=== PATIENT | female | born 2000 | race Caucasian/White ===

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

== ENCOUNTER 2019-04-17 07:51 | Emergency (ER) | payer OTHER, BC, MEDICAID ==
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
[2019-04-17] MEDS ORDERED: Zofran 4 MG/2 ML VIAL IV ONE (08:19)
[2019-04-17] MEDS ORDERED: Sodium Chloride 0.9% 1000 ML 1,000 ML IV STA (08:19)
[2019-04-17] MEDS ORDERED: Zofran 4 MG/2 ML VIAL ONE (08:23)
[2019-04-17] MEDS ORDERED: Sodium Chloride 0.9% 1000 ML 1,000 ML ONE (08:23)
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
[2019-04-17 09:41] VITALS: BP 144/81; O2SAT 99
[2019-04-17] MEDS ORDERED: Hydromorphone 1 mg/ml Ampule IV ONE (09:48)
[2019-04-17] MEDS ORDERED: Hydromorphone 1 mg/ml Ampule ONE (09:55)
[2019-04-17 10:04] VITALS: PULSE 103
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
== END 2019-04-17 10:34 | disposition home or self-care (01) ==
LOC: ED 07:51
DX: T14.8XXA Other injury of unspecified body region, initial encounter (principal); V48.5XXA Car driver injured in noncollision transport accident in traffic accident, initial encounter; R51 Headache; R07.81 Pleurodynia; M25.562 Pain in left knee; M79.652 Pain in left thigh; M79.662 Pain in left lower leg; R42 Dizziness and giddiness; R11.10 Vomiting, unspecified
CPT/HCPCS: 70450; 71046; 72125; 73552; 73562; 96360; 96374; 96375; 99284; J1170; J2405

== ENCOUNTER 2021-08-16 14:54 | Emergency (ER) | payer BC, MEDICAID ==
[2021-08-16] MEDS ORDERED: BENADRYL 50 MG/ML IM ONE (15:03)
[2021-08-16] MEDS ORDERED: BENADRYL 50 MG/ML ONE (15:03)
[2021-08-16] MEDS ORDERED: Pepcid 20 MG PO ONE (15:20)
--- NOTE | 2021-08-16 15:20 | ERPHSYRPT ---
- History of Present Illness Time Seen by Provider: 08/16/21 15:18 Source: patient Exam Limitations: no limitations Patient Subjective Stated Complaint: pt here for allergric reaction to shrimp. and now co hives Triage Nursing Assessment: pt alert, resp easy, skin w/d/p, has hives to face and trunk, no sob or difficulty swallowing Physician History: Patient is 20-year-old female without any significant past medical history, approximately 15 minutes before she came to the emergency room she had sleep and then suddenly developed hives on her face and trunk. She denies any shortness of breath or difficulty in swallowing. She did not have this type of reaction before. Timing/Duration: today Severity: mild Associated Symptoms: denies symptoms Allergies/Adverse Reactions: latex Allergy (Intermediate, Verified 08/16/21 15:02) Rash shellfish derived Allergy (Intermediate, Verified 08/16/21 15:02) Swelling of Tongue and Lips Home Medications: Diclofenac Sodium 75 mg PO DAILY 08/22/18 [History] Polyethylene Glycol 3350 17 gm [Miralax Powder 17GM PACKET] 17 gm PO DAILY 08/22/18 [History] Venlafaxine HCl ER 75 mg [Effexor XR 75 MG] 75 mg PO DAILY 08/22/18 [History] Hx Tetanus, Diphtheria Vaccination/Date Given: No Hx Influenza Vaccination/Date Given: Yes Hx Pneumococcal Vaccination/Date Given: No Immunizations Up to Date: Yes Travel Risk - International Travel Have you traveled outside of the country in past 3 weeks: No - Coronavirus Screening Are you exhibiting any of the following symptoms?: No Close contact with a COVID-19 positive Pt in past 14-21 Days: No - Vaccine Status Have you recieved a Covid-19 vaccination: No - Review of Systems Constitutional: No Fever, No Chills Eyes: No Symptoms Ears, Nose, & Throat: No Symptoms Respiratory: No Cough, No Dyspnea Cardiac: No Chest Pain, No Edema, No Syncope Abdominal/Gastrointestinal: No Abdominal Pain, No Nausea, No Vomiting, No Diarrhea Genitourinary Symptoms: No Dysuria Musculoskeletal: No Back Pain, No Neck Pain Skin: Rash, Skin Lesions Neurological: No Dizziness, No Focal Weakness, No Sensory Changes Psychological: No Symptoms Endocrine: No Symptoms All Other Systems: Reviewed and Negative - Past Medical History Pertinent Past Medical History: No Neurological History: Other Cardiac History: No Pertinent History Respiratory History: No Pertinent History Endocrine Medical History: Other Musculoskeletal History: No Pertinent History GI Medical History: No Pertinent History History: No Pertinent History Psycho-Social History: No Pertinent History Female Reproductive Disorders: No Pertinent History Other Medical History: rheumatoid arthritis, psoriasis,lupus - Past Surgical History Past Surgical History: Yes Neuro Surgical History: No Pertinent History Cardiac: No Pertinent History Respiratory: No Pertinent History Gastrointestinal: Other Genitourinary: No Pertinent History Musculoskeletal: Orthopedic Surgery Female Surgical History: No Pertinent History Other Surgical History: FOOT SURGERY,gastric bypass - Social History Smoking Status: Never smoker Exposure to second hand smoke: No Drug Use: none Patient Lives Alone: No - Female History Hx Last Menstrual Period: 2 weeks ago Hx Now: No - Nursing Vital Signs Nursing Vital Signs: Initial Vital Signs Temperature 97.9 F 08/16/21 14:58 Pulse Rate 96 H 08/16/21 14:58 Respiratory Rate 18 08/16/21 14:58 Blood Pressure 149/85 08/16/21 14:58 O2 Sat by Pulse Oximetry 99 08/16/21 14:58 Pain Scale Pain Intensity 0 - Physical Exam General Appearance: no apparent distress, alert Eye Exam: PERRL/EOMI, eyes nml inspection Ears, Nose, Throat Exam: normal ENT inspection, TMs normal, pharynx normal, moist mucous membranes Neck Exam: normal inspection, non-tender, supple, full range of motion Respiratory Exam: normal breath sounds, lungs clear, No respiratory distress Cardiovascular Exam: regular rate/rhythm, normal heart sounds, normal peripheral pulses Gastrointestinal/Abdomen Exam: soft, normal bowel sounds, No tenderness, No mass Back Exam: normal inspection, normal range of motion, No CVA tenderness, No vertebral tenderness Extremity Exam: normal inspection, normal range of motion, pelvis stable Neurologic Exam: alert, oriented x 3, cooperative, normal mood/affect, nml cerebellar function, nml station & gait, sensation nml, No motor deficits Skin Exam: normal color, warm, dry, rash Lymphatic Exam: No adenopathy SpO2: 99 - Course Nursing assessment & vital signs reviewed: Yes Ordered Tests: Medication Summary Discontinued Medications Generic Name Dose Route Start Last Admin Trade Name Freq PRN Reason Stop Dose Admin Diphenhydramine HCl 50 mg 08/16/21 15:03 08/16/21 15:06 Diphenhydramine Hcl 50 Mg/Ml Vial IM 02/13/22 15:04 50 mg STAT ONE Administration Diphenhydramine HCl Confirm 08/16/21 15:03 Diphenhydramine Hcl 50 Mg/Ml Vial Administered 08/16/21 15:04 Dose 50 mg .ROUTE .STK-MED ONE Famotidine 40 mg 08/16/21 15:20 Famotidine 20 Mg Tablet PO 08/16/21 15:21 STAT ONE - Progress Progress: improved Counseled pt/family regarding: diagnosis, need for follow-up - Departure Departure Disposition: Home Clinical Impression: Food allergic skin reaction Condition: Stable Critical Care Time: No Referrals: TEODORA MANN [Primary Care Provider] - Follow up/PCP as directed Instructions: Food Allergy Additional Instructions: Discharge/Care Plan BEV NG was seen on 08/16/21 in the Emergency Room. The patient was counseled regarding Diagnosis,Lab results, Imaging studies, need for follow up and when to return to the Emergency Room. Prescriptions given: Discharge Note I have spoken with the patient and/or caregivers. I have explained the patient's condition, diagnosis and treatment plan based on the information available to me at this time. I have answered the patient's and/or caregiver's questions and addressed any concerns. The patient and/or caregivers have as good understanding of the patient's diagnosis, condition and treatment plan as can be expected at this point. The vital signs have been stable. The patient's condition is stable and appropriate for discharge from the emergency department. The patient will pursue further outpatient evaluation with the primary care physician or other designated or consulting physician as outlined in the discharge instructions. The patient and/or caregivers are agreeable to this plan of care and follow-up instructions have been explained in detail. The patient and/or caregivers have received these instruction. The patient/and or caregivers are aware that any significant change in condition or worsening of symptoms should prompt an immediate return to this or the closest emergency department or call 911. BEV NG was seen on 08/16/21 n the Emergency Room. At that time you were treated for an emergent condition, during your visit Laboratory, Radiology and/or other procedures may have been ordered. It is very important that you follow-up with your Primary Care Physician TEODORA MANN within the next 24-48 hours to review your Emergency Room visit and the final results of testing that was ordered. Some test results such as Urine Cultures, Blood Cultures, and other cultures if ordered will not be finalized for 24-48 hours. If you do not have a Primary Care Provider please call the medical records department at [phone] to obtain a copy of your results or you may sign into our patient portal to obtain these results by visiting us @ [email or web address] and completing the following steps: 1. Click on the Patient Portal link 2. Click the Patient Self Enrollment Link to complete the enrollment form and entering your 3. Once the enrollment form is completed you will receive an email with a temporary ID and password at the email address you provided. 4. Next choose a user name and password. Your user name must be at least 4 characters long and your password must be at least 4 characters long. 5. Choose a security question from the list and provide your answer to the question. If you already have signed into the Health Portal you may access your Health Care Information 24/01 by the following steps: 1. Login to our website @ [email or web address] 2. Enter your original user name and password. FAQS The [facility] Health Portal is an online tool that contains your Lab Results, Radiology Reports, Visit History, Discharge Instructions and Health Summary Lab and Radiology Results will not be available for 72 hours on the portal. The Portal is a secure site, passwords are encryted and URLs are re-written so they cannot be copied and pasted. You and authorized family members are the only ones who can access your Portal. Also there is a timeout feature that protects your information if you leave the Portal page open. If you have technical difficulty please use the Contact Us link on the page this will allow you to submit any questions you have regarding the Portal or you may contact the Medical Record Department at [phone]. Prescriptions: Epinephrine [Auvi-Q] 0.3 mg IM UD 1 Days #1 kit Famotidine 20 mg [Pepcid 20 MG] 20 mg PO BID #20 tablet
[2021-08-16] MEDS ORDERED: Pepcid 20 MG ONE (15:29)
[2021-08-16 15:55] VITALS: BP 132/50; PULSE 78; O2SAT 97
== END 2021-08-16 16:00 | disposition home or self-care (01) ==
LOC: ED 14:54
DX: L27.2 Dermatitis due to ingested food (principal); L50.0 Allergic urticaria; Z79.899 Other long term (current) drug therapy
CPT/HCPCS: 96372; 99283; J1200; A9270-GY

== ENCOUNTER 2021-08-30 20:04 | Emergency (ER) | payer BC, OTHER ==
[2021-08-30] MEDS ORDERED: Zofran 4 MG/2 ML VIAL IV ONE (20:34)
[2021-08-30] MEDS ORDERED: Sodium Chloride 0.9% 1000 ML 1,000 ML IV STA ×2 (20:34→20:35)
--- NOTE | 2021-08-30 20:34 | ERPHSYRPT ---
- History of Present Illness Source: patient Exam Limitations: no limitations Physician History: The patient is a 20-year-old female with a past medical history significant for status post Cheng-en-Y was of 2019, fibromyalgia, and reported lupus presents with a chief complaint of nausea, vomiting, diarrhea and fever. Onset reportedly was 2 days ago. She reports her T-max is 102 Fahrenheit and she has been taken Tylenol in addition to ibuprofen She is endorsed having initially nonbilious nonbloody vomiting that has since started to slow down but now has had profuse watery diarrhea but no reported blood since that time. She denies any pain to include abdominal pain. She denies any recent sick contacts, recent antibiotic use, is not currently immunosuppressed with either prednisone or Biologics, and has had no recent travel outside of the country. She reports been taking Imodium for diarrhea and has had a total of 6 Imodium tablets since this morning. She has secondary complaints of feeling dizzy and lightheaded especially when going from sitting to standing. Associated Symptoms: nausea, vomiting, fever, No abdominal pain, No chest pain, No rash, No weakness Allergies/Adverse Reactions: latex Allergy (Intermediate, Verified 08/30/21 20:12) Rash shellfish derived Allergy (Intermediate, Verified 08/30/21 20:12) Swelling of Tongue and Lips Home Medications: Diclofenac Sodium 75 mg PO DAILY 08/22/18 [History] Polyethylene Glycol 3350 17 gm [Miralax Powder 17GM PACKET] 17 gm PO DAILY 08/22/18 [History] Venlafaxine HCl ER 75 mg [Effexor XR 75 MG] 75 mg PO DAILY 08/22/18 [History] Hx Tetanus, Diphtheria Vaccination/Date Given: No Hx Influenza Vaccination/Date Given: Yes Hx Pneumococcal Vaccination/Date Given: No Travel Risk - Vaccine Status Have you recieved a Covid-19 vaccination: No - Review of Systems Constitutional: Fever, Chills Eyes: No Symptoms Ears, Nose, & Throat: No Symptoms Respiratory: No Symptoms Cardiac: No Symptoms Abdominal/Gastrointestinal: Nausea, Vomiting, Diarrhea, No Abdominal Pain, No Constipation, No Hematemesis, No Hematochezia, No Melena Genitourinary Symptoms: No Symptoms Musculoskeletal: No Symptoms Skin: No Symptoms Neurological: Dizziness Psychological: No Symptoms Endocrine: No Symptoms Hematologic/Lymphatic: No Symptoms - Past Medical History Pertinent Past Medical History: No Neurological History: Other Cardiac History: No Pertinent History Respiratory History: No Pertinent History Endocrine Medical History: Other Musculoskeletal History: No Pertinent History GI Medical History: No Pertinent History History: No Pertinent History Psycho-Social History: No Pertinent History Female Reproductive Disorders: No Pertinent History Other Medical History: rheumatoid arthritis, psoriasis,lupus - Past Surgical History Past Surgical History: Yes Neuro Surgical History: No Pertinent History Cardiac: No Pertinent History Respiratory: No Pertinent History Gastrointestinal: Other Genitourinary: No Pertinent History Musculoskeletal: Orthopedic Surgery Female Surgical History: No Pertinent History Other Surgical History: FOOT SURGERY,gastric bypass - Social History Smoking Status: Never smoker Exposure to second hand smoke: No Drug Use: none Patient Lives Alone: No - Nursing Vital Signs Nursing Vital Signs: Initial Vital Signs Temperature 99.7 F 08/30/21 20:13 Pulse Rate 106 H 08/30/21 20:13 Respiratory Rate 14 08/30/21 20:13 Blood Pressure 129/78 08/30/21 20:13 O2 Sat by Pulse Oximetry 99 08/30/21 20:13 Pain Scale Pain Intensity 0 - Physical Exam General Appearance: no apparent distress, alert Eye Exam: PERRL/EOMI Neck Exam: normal inspection, supple Respiratory Exam: normal breath sounds, lungs clear, airway intact, No respiratory distress Cardiovascular Exam: normal heart sounds, normal peripheral pulses, tachycardia, capillary refill <2 sec, No murmur, No friction rub, No gallop, No edema Gastrointestinal/Abdomen Exam: soft, No tenderness, No distention, No mass, No guarding Pelvic Exam: not done Rectal Exam: deferred Back Exam: normal inspection Extremity Exam: normal inspection, other (No asymmetric lower extremity edema, calf tenderness or erythema to suggest DVT.), No pedal edema, No swelling Neurologic Exam: alert, oriented x 3 Skin Exam: normal color, dry, No rash, No petechiae, No jaundice, No cyanosis, No jaundice SpO2 Interpretation: normal - Course Nursing assessment & vital signs reviewed: Yes EKG Interpreted by Me: Sinus Tach, NORMAL AXIS, NORMAL INTERVALS, NORMAL QRS, Other (No evidence of acute myocardial ischemia or injury pattern) Ordered Tests: Active Orders 24 hr Category Date Time Status EKG-ER Only STAT Care 08/30/21 20:34 Completed IV Insertion STAT Care 08/30/21 20:34 Completed BMP Stat Lab 02/27/22 20:41 Completed CBC W DIFF Stat Lab 08/30/21 20:41 Completed HCG,QUALITATIVE URINE Stat Lab 08/30/21 20:56 Completed UA W/RFX UR CULTURE Stat Lab 08/30/21 20:56 Completed Medication Summary Discontinued Medications Generic Name Dose Route Start Last Admin Trade Name Shahab PRN Reason Stop Dose Admin Sodium Chloride 1,000 mls @ 999 mls/hr 08/30/21 20:34 08/30/21 20:44 Sodium Chloride 0.9% 1000 Ml IV 08/30/21 21:34 999 mls/hr .Q1H1M STA Administration Sodium Chloride 1,000 mls @ 999 mls/hr 08/30/21 20:35 08/30/21 22:06 Sodium Chloride 0.9% 1000 Ml IV 08/30/21 21:35 Not Given .Q1H1M STA Sodium Chloride Confirm 08/30/21 20:37 Sodium Chloride 0.9% 1000 Ml Administered 08/30/21 20:38 Dose 1,000 mls @ ud .ROUTE .STK-MED ONE Ondansetron HCl 4 mg 08/30/21 20:34 08/30/21 20:46 Ondansetron Hcl 4 Mg/2 Ml Vial IV 08/30/21 20:35 4 mg STAT ONE Administration Ondansetron HCl Confirm 08/30/21 20:37 Ondansetron Hcl 4 Mg/2 Ml Vial Administered 08/30/21 20:38 Dose 4 mg .ROUTE .STK-MED ONE Lab/Rad Data: Laboratory Result Diagrams 08/30/21 20:41 08/30/21 20:41 Laboratory Results 08/30/21 08/30/21 08/30/21 Range/Units 20:56 20:56 20:41 WBC (4.0-10.5) K/mm3 RBC (4.1-5.4) M/mm3 Hgb (12.0-16.0) gm/dl Hct (35-47) % MCV (78-100) fl MCH (26-32) pg MCHC (32-36) g/dl RDW (11.5-14.0) % Plt Count (150-450) K/mm3 MPV (7.5-11.0) fl Gran % (36.0-66.0) % Eos # (Auto) (0-0.5) Absolute Lymphs (auto) (1.0-4.6) Absolute Monos (auto) (0.0-1.3) Lymphocytes % (24.0-44.0) % Monocytes % (0.0-12.0) % Eosinophils % (0.00-5.0) % Basophils % (0.0-0.4) % Absolute Granulocytes (1.4-6.9) Basophils # (0-0.4) Sodium 139 (137-145) mmol/L Potassium 3.3 L (3.5-5.1) mmol/L Chloride 105 (98-107) mmol/L Carbon Dioxide 23 (22-30) mmol/L Anion Gap 13.4 (5-15) MEQ/L BUN 4 L (7-17) mg/dL Creatinine 0.67 (0.52-1.04) mg/dL Estimated GFR > 60.0 ML/MIN Glucose 130 H (74-106) mg/dL Calcium 8.7 (8.4-10.2) mg/dL Urine Color YELLOW (YELLOW) Urine Appearance CLEAR (CLEAR) Urine pH 6.0 (5-6) Ur Specific [place] 1.005 (1.005-1.025) Urine Protein NEGATIVE (Negative) Urine Ketones NEGATIVE (NEGATIVE) Urine Blood NEGATIVE (0-5) Slick/ul Urine Nitrite NEGATIVE (NEGATIVE) Urine Bilirubin NEGATIVE (NEGATIVE) Urine Urobilinogen NEGATIVE (0-1) mg/dL Ur Leukocyte Esterase NEGATIVE (NEGATIVE) Urine WBC (Auto) 0-2 (0-5) /HPF Urine RBC (Auto) NONE (0-2) /HPF U Epithel Cells (Auto) NONE (FEW) /HPF Urine Bacteria (Auto) NONE (NEGATIVE) /HPF Urine Mucus (Auto) SLIGHT (NEGATIVE) /HPF Urine Culture Reflexed NO (NO) Urine Glucose NEGATIVE (NEGATIVE) mg/dL Urine HCG, Qual NEGATIVE (Negative) Slides for Path Review 08/30/21 Range/Units 20:41 WBC 9.8 (4.0-10.5) K/mm3 RBC 4.49 (4.1-5.4) M/mm3 Hgb 9.8 L (12.0-16.0) gm/dl Hct 33.1 L (35-47) % MCV 73.7 L (78-100) fl MCH 21.8 L (26-32) pg MCHC 29.6 L (32-36) g/dl RDW 17.8 H (11.5-14.0) % Plt Count 275 (150-450) K/mm3 MPV 11.4 H (7.5-11.0) fl Gran % 76.0 H (36.0-66.0) % Eos # (Auto) 0.06 (0-0.5) Absolute Lymphs (auto) 1.29 (1.0-4.6) Absolute Monos (auto) 0.97 (0.0-1.3) Lymphocytes % 13.2 L (24.0-44.0) % Monocytes % 9.9 (0.0-12.0) % Eosinophils % 0.6 (0.00-5.0) % Basophils % 0.3 (0.0-0.4) % Absolute Granulocytes 7.45 H (1.4-6.9) Basophils # 0.03 (0-0.4) Sodium (137-145) mmol/L Potassium (3.5-5.1) mmol/L Chloride (98-107) mmol/L Carbon Dioxide (22-30) mmol/L Anion Gap (5-15) MEQ/L BUN (7-17) mg/dL Creatinine (0.52-1.04) mg/dL Estimated GFR ML/MIN Glucose (74-106) mg/dL Calcium (8.4-10.2) mg/dL Urine Color (YELLOW) Urine Appearance (CLEAR) Urine pH (5-6) Ur Specific [place] (1.005-1.025) Urine Protein (Negative) Urine Ketones (NEGATIVE) Urine Blood (0-5) Slick/ul Urine Nitrite (NEGATIVE) Urine Bilirubin (NEGATIVE) Urine Urobilinogen (0-1) mg/dL Ur Leukocyte Esterase (NEGATIVE) Urine WBC (Auto) (0-5) /HPF Urine RBC (Auto) (0-2) /HPF U Epithel Cells (Auto) (FEW) /HPF Urine Bacteria (Auto) (NEGATIVE) /HPF Urine Mucus (Auto) (NEGATIVE) /HPF Urine Culture Reflexed (NO) Urine Glucose (NEGATIVE) mg/dL Urine HCG, Qual (Negative) Slides for Path Review YES - Progress Progress: improved Progress Note: 08/30/21 21:31 Nontoxic in appearance. The patient presents with fever, nausea, vomiting and diarrhea. I suspect this is likely secondary to a viral gastroenteritis. She has no significant abdominal pain or tenderness and therefore imaging will be deferred given my low suspicion, specifically for appendicitis or lupus complication. There is no blood in her stool and there is no recent antibiotic use and my suspicion for bacterial enteritis or C. difficile colitis is low and therefore stool studies will be deferred. The patient will be given 2 L of IV fluid for rehydration in addition to Zofran and when she is feeling better and able to tolerate p.o. she will be discharged home. 08/30/21 21:51 The patient reportedly tolerating p.o. and reportedly is ready to be discharged home. Counseled pt/family regarding: lab results, diagnosis, need for follow-up - Departure Departure Disposition: Home Clinical Impression: Nausea and vomiting, Diarrhea, Gastroenteritis Condition: Stable Critical Care Time: No Referrals: TEODORA MANN [Primary Care Provider] - Follow up/PCP as directed Instructions: Diarrhea in Adolescents and Adults, Viral Gastroenteritis, Nausea and Vomiting, Adult (DC) Additional Instructions: Please take Tylenol as needed for any ongoing fevers aches or pain. You can purchase this medication [id number]. Please take this medication as instr ucted on the medication bottle. Please avoid NSAIDs such as ibuprofen, Motrin, Aleve or naproxen given your history of a Cehng-en-Y. Please continue taking Imodium as prescribed or as instructed on the medication bottle. Prescriptions: Ondansetron [Ondansetron Odt ] 4 mg PO Q6H PRN #30 tablet PRN Reason: Nausea
[2021-08-30] MEDS ORDERED: Sodium Chloride 0.9% 1000 ML 1,000 ML ONE (20:37)
[2021-08-30] MEDS ORDERED: Zofran 4 MG/2 ML VIAL ONE (20:37)
[2021-08-30 20:44] LABS: Absolute Neutrophil Ct (ANC) 7.45 (1.4-6.9); Basophil (Absolute #) 0.03 (0-0.4); Eosinophil % 0.6 % (0.00-5.0); Eosinophil (Absolute #) 0.06 (0-0.5); Hematocrit 33.1 % (35-47); Hemoglobin 9.8 gm/dl (12.0-16.0); Lymphocyte (Absolute #) 1.29 (1.0-4.6); Lymphocytes % 13.2 % (24.0-44.0); Mean Cell Volume 73.7 fl (78-100); Mean Corpuscular Hemoglobin 21.8 pg (26-32); Mean Corpuscular Hgb Concent. 29.6 g/dl (32-36); Mean Platelet Volume 11.4 fl (7.5-11.0); Monocyte (Absolute #) 0.97 (0.0-1.3); Monocytes % 9.9 % (0.0-12.0); Platelet Count 275 K/mm3 (150-450); Red Blood Count 4.49 M/mm3 (4.1-5.4); Red Cell Distribution Width 17.8 % (11.5-14.0); White Blood Count 9.8 K/mm3 (4.0-10.5)
[2021-08-30 20:55] LABS: ANION GAP 13.4 MEQ/L (5-15); BLOOD UREA NITROGEN 4 mg/dL (7-17); CHLORIDE 105 mmol/L (98-107); Calcium 8.7 mg/dL (8.4-10.2); Carbon Dioxide 23 mmol/L (22-30); Creatinine 1 0.67 mg/dL (0.52-1.04); EST GLOMERULAR FILTRATION RATE > 60.0 ML/MIN; Glucose 130 mg/dL (74-106); Potassium 3.3 mmol/L (3.5-5.1); SODIUM 139 mmol/L (137-145)
[2021-08-30 21:06] LABS: Appearance CLEAR (CLEAR); Bilirubin NEGATIVE (NEGATIVE); Blood NEGATIVE Ery/ul (0-5); Glucose NEGATIVE (NEGATIVE); Ketones NEGATIVE (NEGATIVE); Leukocyte Esterase NEGATIVE (NEGATIVE); Mucus SLIGHT /HPF (NEGATIVE); Nitrite NEGATIVE (NEGATIVE); Protein,Urine Dip NEGATIVE (Negative); Specific Gravity 1.005 (1.005-1.025); Urobilinogen NEGATIVE mg/dL (0-1); WBC 0-2 /HPF (0-5)
[2021-08-30 21:36] VITALS: BP 112/65; PULSE 103; O2SAT 98
[2021-08-30 23:46] LABS: Slide Review 1 YES
== END 2021-08-30 22:08 | disposition home or self-care (01) ==
LOC: ED 20:04
DX: A08.4 Viral intestinal infection, unspecified (principal); R11.2 Nausea with vomiting, unspecified; R19.7 Diarrhea, unspecified; R50.9 Fever, unspecified; R42 Dizziness and giddiness
CPT/HCPCS: 36000; 36415; 80048; 81001; 84703; 85025; 93005; 96374; 99284; J2405

== ENCOUNTER 2023-10-03 16:52 | Emergency (ER) | payer BC, OTHER ==
--- NOTE | 2023-10-03 16:57 | ERPHSYRPT ---
- History of Present Illness Time Seen by Provider: 10/03/23 16:56 Historian: patient, family Exam Limitations: no limitations Physician History: This is a 22-year-old white female patient who completed her last menstrual period last week but has noticed some vaginal spotting with associated right flank pain and right lower quadrant abdominal pain as well as episodes of nausea and vomiting. The pain began 6 days ago. Symptoms somewhat improved with Zofran. However her pain worsened 4 days ago. Patient was seen at [facility]. Patient was given a prescription for Zofran but no significant findings on workup there at that facility. No CAT scan of the abdomen pelvis was performed. Patient was seen by her primary care provider today, nurse practitioner Kalen who examined the patient and was concerned about possible acute appendicitis and therefore sent the patient to the emergency department for further evaluation management. Timing/Duration: worse Activities at Onset: none Abdominal Pain Onset Location: flank (Flank) Pain Radiation: RLQ, groin (Right groin) Severity of Pain-Max: mild (Moderate) Severity of Pain-Current: mild (To moderate) Modifying Factors: Improves With: other (Antiemetics. Initially helped.) Associated Symptoms: nausea, vomiting, No chest pain, No fever/chills, No shortness of breath Allergies/Adverse Reactions: latex Allergy (Intermediate, Verified 08/30/21 20:12) Rash shellfish derived Allergy (Intermediate, Verified 08/30/21 20:12) Swelling of Tongue and Lips benzonatate Allergy (Verified 10/03/23 17:07) Home Medications: Venlafaxine HCl ER 75 mg [Effexor XR 75 MG] 75 mg PO DAILY 08/22/18 [History] Valacyclovir HCl [valACYclovir] 1,000 mg PO DAILY 10/03/23 [History] Hx Tetanus, Diphtheria Vaccination/Date Given: No Hx Influenza Vaccination/Date Given: Yes Hx Pneumococcal Vaccination/Date Given: No Travel Risk - International Travel Have you traveled outside of the country in past 3 weeks: No - Emerging Infectious Disease Are you exhibiting symptoms associated with any current EIDs: No - Review of Systems Constitutional: No Symptoms Eyes: No Symptoms Ears, Nose, & Throat: No Symptoms Respiratory: No Symptoms Cardiac: No Symptoms Abdominal/Gastrointestinal: Abdominal Pain, Nausea, Vomiting, Appetite Changes Genitourinary Symptoms: Hematuria, No Dysuria, No Incontinence Musculoskeletal: No Symptoms Skin: No Symptoms Neurological: No Symptoms Psychological: No Symptoms Endocrine: No Symptoms Hematologic/Lymphatic: No Symptoms Immunological/Allergic: No Symptoms All Other Systems: Reviewed and Negative - Past Medical History Pertinent Past Medical History: No Neurological History: Other Cardiac History: No Pertinent History Respiratory History: No Pertinent History Endocrine Medical History: Other Musculoskeletal History: No Pertinent History GI Medical History: No Pertinent History History: No Pertinent History Psycho-Social History: No Pertinent History Female Reproductive Disorders: No Pertinent History Other Medical History: rheumatoid arthritis, psoriasis,lupus - Past Surgical History Past Surgical History: Yes Neuro Surgical History: No Pertinent History Cardiac: No Pertinent History Respiratory: No Pertinent History Gastrointestinal: Other Genitourinary: No Pertinent History Musculoskeletal: Orthopedic Surgery Female Surgical History: No Pertinent History Other Surgical History: FOOT SURGERY,gastric bypass - Social History Smoking Status: Never smoker Exposure to second hand smoke: No Drug Use: none Patient Lives Alone: No - Nursing Vital Signs Nursing Vital Signs: Initial Vital Signs Blood Pressure 126/80 10/03/23 17:04 O2 Sat by Pulse Oximetry 100 10/03/23 17:04 Pain Scale Pain Intensity 0 - Physical Exam General Appearance: no apparent distress, alert, anxiety Eye Exam: PERRL/EOMI, eyes nml inspection Ears, Nose, Throat Exam: normal ENT inspection, TM abnormal (L) Neck Exam: normal inspection, non-tender, supple, full range of motion Respiratory Exam: normal breath sounds, lungs clear, airway intact, No chest te nderness, No respiratory distress Cardiovascular Exam: regular rate/rhythm, normal heart sounds, normal peripheral pulses Gastrointestinal/Abdomen Exam: soft, normal bowel sounds, tenderness (Right lower quadrant to palpation), guarding (Right lower quadrant to palpation), rebound (Right lower quadrant) Pelvic Exam: not done Rectal Exam: not done Back Exam: normal inspection, normal range of motion, CVA tenderness (Right side), No vertebral tenderness Extremity Exam: normal inspection, normal range of motion, pelvis stable Neurologic Exam: alert, oriented x 3, cooperative, manager print II-XII nml as tested, normal mood/affect, nml cerebellar function, nml station & gait, sensation nml Skin Exam: normal color, warm, dry Lymphatic Exam: No adenopathy SpO2 Interpretation: normal O2 Delivery: Room Air - Course Nursing assessment & vital signs reviewed: Yes Ordered Tests: Active Orders 24 hr Category Date Time Status IV Insertion STAT Care 10/03/23 17:21 Active ABDOMEN AND PELVIS W/0 CONTRAS [CT] Stat Exams 10/03/23 17:35 Taken AMYLASE Stat Lab 10/03/23 17:30 Completed CBC W DIFF Stat Lab 10/03/23 17:30 Completed CMP Stat Lab 10/03/23 17:30 Completed HCG QUALITATIVE, SERUM Stat Lab 10/03/23 17:30 Completed LIPASE Stat Lab 10/03/23 17:30 Completed UA W/RFX UR CULTURE Stat Lab 10/03/23 17:32 Completed Medication Summary Discontinued Medications Generic Name Dose Route Start Last Admin Trade Name Freq PRN Reason Stop Dose Admin Hydromorphone HCl 1 mg 10/03/23 17:21 10/03/23 18:56 Hydromorphone 1 Mg/1ml Inj IV 10/03/23 17:22 Not Given STAT ONE Hydromorphone HCl Confirm 10/03/23 17:38 Hydromorphone 1 Mg/1ml Inj Administered 10/03/23 17:39 Dose 1 mg .ROUTE .STK-MED ONE Sodium Chloride 1,000 mls @ 999 mls/hr 10/03/23 17:21 10/03/23 18:55 Sodium Chloride 0.9% 1000 Ml IV 10/03/23 18:21 Infused .Q1H1M STA Infusion Sodium Chloride Confirm 10/03/23 17:38 Sodium Chloride 0.9% 1000 Ml Administered 10/03/23 17:39 Dose 1,000 mls @ ud .ROUTE .STK-MED ONE Ondansetron HCl 4 mg 10/03/23 17:21 10/03/23 17:41 Ondansetron Hcl 4 Mg/2 Ml Vial IV 10/03/23 17:22 4 mg STAT ONE Administration Ondansetron HCl Confirm 10/03/23 17:38 Ondansetron Hcl 4 Mg/2 Ml Vial Administered 10/03/23 17:39 Dose 4 mg .ROUTE .STK-MED ONE Lab/Rad Data: Laboratory Result Diagrams 10/03/23 17:30 10/03/23 17:30 Laboratory Results 10/03/23 10/03/23 10/03/23 Range/Units 17:32 17:30 17:30 WBC (4.0-10.5) x10^3/uL RBC (4.1-5.4) x10^6/uL Hgb (12.0-16.0) g/dL Hct (35-47) % MCV (78-100) fL MCH (26-32) pg MCHC (32-36) g/dL RDW (11.5-14.0) % Plt Count (150-450) x10^3/uL MPV (7.5-11.0) fL Gran % (36.0-66.0) % Immature Gran % (Auto) (0.00-0.4) % Nucleat RBC Rel Count (0.00-0.1) % Eos # (Auto) (0-0.5) x10^3/uL Immature Gran # (Auto) (0.00-0.03) x10^3u/L Absolute Lymphs (auto) (1.0-4.6) x10^3/uL Absolute Monos (auto) (0.0-1.3) x10^3/uL Absolute Nucleated RBC (0.00-0.01) x10^3u/L Lymphocytes % (24.0-44.0) % Monocytes % (0.0-12.0) % Eosinophils % (0.00-5.0) % Basophils % (0.0-0.4) % Absolute Granulocytes (1.4-6.9) x10^3/uL Basophils # (0-0.4) x10^3/uL Sodium 139 (135-145) mmol/L Potassium 3.9 (3.5-5.1) mmol/L Chloride 103 (98-107) mmol/L Carbon Dioxide 28 (22-30) mmol/L Anion Gap 12.0 (5-15) MEQ/L BUN 8 (7-17) mg/dL Creatinine 0.78 (0.52-1.04) mg/dL Estimated GFR 109.4 ML/MIN Glucose 80 (74-106) mg/dL Calcium 8.8 (8.4-10.2) mg/dL Total Bilirubin 0.30 (0.2-1.3) mg/dL AST 26 (14-36) U/L ALT 14 (0-35) U/L Alkaline Phosphatase 94 (38-126) U/L Serum Total Protein 7.4 (6.3-8.2) g/dL Albumin 4.3 (3.5-5.0) g/dL Amylase 62 (30-110) U/L Lipase 55 (23-300) U/L Serum HCG, Qual NEGATIVE (NEGATIVE) Urine Color Yellow (Yellow) Urine Appearance Clear (Clear) Urine pH 6.0 (4.6-8.0) Ur Specific [place] 1.010 (1.005-1.030) Urine Protein Negative (Negative) Urine Glucose (UA) Negative (Negative) mg/dL Urine Ketones Negative (Negative) Urine Blood Negative (Negative) Urine Nitrite Negative (Negative) Urine Bilirubin Negative (Negative) Urine Urobilinogen 1.0 A (0.2) mg/dL Ur Leukocyte Esterase Negative (Negative) U Hyaline Cast (Auto) NONE SEEN (0-2) /LPF Urine Microscopic RBC 0-2 (0-5) /HPF Urine Microscopic WBC 0-2 (0-5) /HPF Ur Epithelial Cells None Seen (None Seen) /HPF Urine Bacteria None Seen (None Seen) /HPF Urine Culture Reflexed NO (NO) Slides for Path Review 10/03/23 Range/Units 17:30 WBC 5.7 (4.0-10.5) x10^3/uL RBC 5.03 (4.1-5.4) x10^6/uL Hgb 10.0 L (12.0-16.0) g/dL Hct 36.0 (35-47) % MCV 71.6 L (78-100) fL MCH 19.9 L (26-32) pg MCHC 27.8 L (32-36) g/dL RDW 18.0 H (11.5-14.0) % Plt Count 251 (150-450) x10^3/uL MPV 9.8 (7.5-11.0) fL Gran % 53.5 (36.0-66.0) % Immature Gran % (Auto) 0.2 (0.00-0.4) % Nucleat RBC Rel Count 0.0 (0.00-0.1) % Eos # (Auto) 0.14 (0-0.5) x10^3/uL Immature Gran # (Auto) 0.01 (0.00-0.03) x10^3u/L Absolute Lymphs (auto) 1.81 (1.0-4.6) x10^3/uL Absolute Monos (auto) 0.66 (0.0-1.3) x10^3/uL Absolute Nucleated RBC 0.00 (0.00-0.01) x10^3u/L Lymphocytes % 31.5 (24.0-44.0) % Monocytes % 11.5 (0.0-12.0) % Eosinophils % 2.4 (0.00-5.0) % Basophils % 0.9 (0.0-0.4) % Absolute Granulocytes 3.07 (1.4-6.9) x10^3/uL Basophils # 0.05 (0-0.4) x10^3/uL Sodium (135-145) mmol/L Potassium (3.5-5.1) mmol/L Chloride (98-107) mmol/L Carbon Dioxide (22-30) mmol/L Anion Gap (5-15) MEQ/L BUN (7-17) mg/dL Creatinine (0.52-1.04) mg/dL Estimated GFR ML/MIN Glucose (74-106) mg/dL Calcium (8.4-10.2) mg/dL Total Bilirubin (0.2-1.3) mg/dL AST (14-36) U/L ALT (0-35) U/L Alkaline Phosphatase (38-126) U/L Serum Total Protein (6.3-8.2) g/dL Albumin (3.5-5.0) g/dL Amylase (30-110) U/L Lipase (23-300) U/L Serum HCG, Qual (NEGATIVE) Urine Color (Yellow) Urine Appearance (Clear) Urine pH (4.6-8.0) Ur Specific [place] (1.005-1.030) Urine Protein (Negative) Urine Glucose (UA) (Negative) mg/dL Urine Ketones (Negative) Urine Blood (Negative) Urine Nitrite (Negative) Urine Bilirubin (Negative) Urine Urobilinogen (0.2) mg/dL Ur Leukocyte Esterase (Negative) U Hyaline Cast (Auto) (0-2) /LPF Urine Microscopic RBC (0-5) /HPF Urine Microscopic WBC (0-5) /HPF Ur Epithelial Cells (None Seen) /HPF Urine Bacteria (None Seen) /HPF Urine Culture Reflexed (NO) Slides for Path Review YES - Progress Progress: improved, pain not gone completely, re-examined Progress Note: 10/03/23 17:27 This patient's medical issue is 1 of moderate complexity. The level of complexity in the workup performed is based on review of the patient's past medical history, review of the patient's medication list, review of patient drug allergy list, history present send physical findings on examination. The workup in this patient includes placement of intravenous line, infusion normal saline solution, infusion of Dilaudid, Zofran, CBC, CMP, urinalysis, test, CT scan of the abdomen pelvis without contrast. 10/03/23 18:57 I interpreted the patient's laboratory data results. Based on her laboratory results, she does not have any acute, emergent medical issue. 10/03/23 19:24 CT scan of the abdomen pelvis without contrast was interpreted by the radiologist. I reviewed the impression. There is a new, distended gallbladder with multiple stones present with the largest one being 1.6 cm. There is no evidence of ureterolithiasis or obstructive uropathy. There is a normal appendix visualized. Counseled pt/family regarding: lab results, diagnosis, rad results Medical Desision Making - Independent Historian Additional History obtained from: Family - Diagnostic Testing Diagnostic test were ordered, analyzed, and reviewed by me: Yes Radiological Interpretation: Reviewed by me, Teleradiologist Report - Risk of complications The pt has a mod risk of morbidity or mortality based on: Need for prescription drug management - Departure Departure Disposition: Home Clinical Impression: Cholelithiasis Condition: Stable Critical Care Time: No Referrals: LENORA BRUMFIELD NP [Primary Care Provider] - Follow up/PCP as directed Additional Instructions: Avoid fatty greasy spicy foods. Call your primary care provider tomorrow, 10/04/2023, to make arrangements for follow-up appointment in the next 48 hours and to arrange an outpatient gallbladder ultrasound and referral to the general surgeon as indicated. Prescriptions: Ondansetron ODT 4 MG [Zofran Odt 4 mg] 4 mg PO Q6H PRN PRN #10 tablet PRN Reason: Vomiting Hydrocodone/APAP 5/325 [[place] 5/325 mg] 1 each PO Q8H PRN PRN #6 tablet MDD 3 PRN Reason: Pain
[2023-10-03 17:12] VITALS: RESP 16; TEMP 97
[2023-10-03 17:37] LABS: Absolute Neutrophil Ct (ANC) 3.07 x10^3/uL (1.4-6.9); BASOPHIL % 0.9 % (0.0-0.4); Basophil (Absolute #) 0.05 x10^3/uL (0-0.4); Eosinophil % 2.4 % (0.00-5.0); Eosinophil (Absolute #) 0.14 x10^3/uL (0-0.5); IMMATURE GRAN # 0.01 x10^3u/L (0.00-0.03); IMMATURE GRAN % 0.2 % (0.00-0.4); Lymphocyte (Absolute #) 1.81 x10^3/uL (1.0-4.6); Lymphocytes % 31.5 % (24.0-44.0); Mean Cell Volume 71.6 fL (78-100); Mean Corpuscular Hemoglobin 19.9 pg (26-32); Mean Corpuscular Hgb Concent. 27.8 g/dL (32-36); Mean Platelet Volume 9.8 fL (7.5-11.0); Monocyte (Absolute #) 0.66 x10^3/uL (0.0-1.3); Monocytes % 11.5 % (0.0-12.0); Neutrophil % 53.5 % (36.0-66.0); Platelet Count 251 x10^3/uL (150-450); Red Blood Count 5.03 x10^6/uL (4.1-5.4); White Blood Count 5.7 x10^3/uL (4.0-10.5)
[2023-10-03] MEDS ORDERED: Hydromorphone 1 mg/ml Injection ONE (17:38)
[2023-10-03] MEDS ORDERED: Sodium Chloride 0.9% 1000 ML 1,000 ML ONE (17:38)
[2023-10-03] MEDS ORDERED: Zofran 4 MG/2 ML VIAL ONE (17:38)
[2023-10-03] MEDS: Sodium Chloride 0.9% 1000 ML 1,000 ML IV STA (17:41)
[2023-10-03] MEDS: Zofran 4 MG/2 ML VIAL IV ONE (17:41)
[2023-10-03 17:50] LABS: HCG SERUM TEST NEGATIVE (NEGATIVE)
[2023-10-03 17:51] LABS: ALBUMIN 4.3 g/dL (3.5-5.0); BILIRUBIN,TOTAL 0.3 mg/dL (0.2-1.3); Calcium 8.8 mg/dL (8.4-10.2); Creatinine 1 0.78 mg/dL (0.52-1.04); EST GLOMERULAR FILTRATION RATE 109.4 ML/MIN; Potassium 3.9 mmol/L (3.5-5.1); Total Protein 7.4 g/dL (6.3-8.2)
[2023-10-03 18:14] VITALS: BP 115/66; PULSE 80; O2SAT 100
[2023-10-03 18:14] LABS: Appearance Clear (Clear); Bacteria None Seen /HPF (None Seen); Bilirubin Negative (Negative); Blood Negative (Negative); Epithelial Cells None Seen /HPF (None Seen); Glucose, Urine Negative (Negative); Hyaline Casts NONE SEEN /LPF (0-2); Ketones Negative (Negative); Leukocyte Esterase Negative (Negative); Nitrite Negative (Negative); Protein,Urine Dip Negative (Negative); RBC 0-2 /HPF (0-5); WBC 0-2 /HPF (0-5)
[2023-10-03 18:15] LABS: ADD URINE CULTURE? NO (NO)
[2023-10-03 18:33] LABS: Slide Review 1 YES
[2023-10-03] MEDS: Hydromorphone 1 mg/ml Injection IV ONE (18:56)
--- NOTE | 2023-10-04 08:39 | XRAY ---
Indication: Right flank/right lower quadrant pain. Multiple contiguous axial images obtained through the abdomen and pelvis without contrast using renal stone protocol. Comparison: March 17, 2020 Lung bases clear. Heart not enlarged. No renal calculus or evidence for obstructive uropathy in either system. Again previous gastric bypass surgery. Noncontrasted stomach and bowels appear nonobstructed with normal appendix. There is now mild diffuse scattered colonic fecal debris throughout. Gallbladder is now moderately distended with multiple gallstones, largest 1.6 cm. No free fluid/air. Remaining liver, pancreas, spleen, adrenal glands, kidneys, ureters, bladder, uterus, and aorta are unremarkable for noncontrast exam. Osseous structures intact. No ventral or inguinal hernias. Impression: 1. Continued negative for renal calculus or evidence for obstructive uropathy. 2. New distended gallbladder with gallstones. Sonogram may yield further information. 3. New mild diffuse fecal stasis.
== END 2023-10-03 20:13 | disposition home or self-care (01) ==
LOC: ED 16:52
DX: K80.20 Calculus of gallbladder without cholecystitis without obstruction (principal); R10.31 Right lower quadrant pain; R11.2 Nausea with vomiting, unspecified; Z79.891 Long term (current) use of opiate analgesic; Z79.899 Other long term (current) drug therapy
CPT/HCPCS: 36000; 36415; 74176; 80053; 81001; 82150; 83690; 84703; 85025; 96360; 96374; 99284; J1170; J2405

== ENCOUNTER 2023-10-31 08:05 | Day surgery (SDC) | payer BC, OTHER ==
[~2023-10-31 08:05] MED LIST: Sensorcaine 0.25% 10 ML ONE; Sodium Chloride 0.9% 1000 ML 2,000 ML ONE
--- NOTE | 2023-10-31 08:11 | HP ---
DATE OF SURGERY: 10/31/2023 HISTORY OF PRESENT ILLNESS: The patient is a 22-year-old with some right upper quadrant pain associated with some nausea and vomiting over the past few weeks. CT scan showed cholelithiasis. I feel she had acute exacerbation of chronic cholecystitis and cholelithiasis. PAST MEDICAL HISTORY: Anxiety, depression. PAST SURGICAL HISTORY: Ankle surgery in the past. Gastric bypass. Tonsillectomy in the past. MEDICATIONS: Buspirone, venlafaxine, control pill. ALLERGIES: BENZONATATE. LATEX (RASH). SHELL FISH (TONGUE/LIP SWELLING). FAMILY HISTORY: Cancer, diabetes. SOCIAL HISTORY: No smoking. Occasional alcohol use. REVIEW OF SYSTEMS: Twelve systems reviewed. No chest pain or palpitations. Other systems negative or noncontributory as above and per preadmission questionnaire. PHYSICAL EXAMINATION: Height 5 feet 3 inches. BMI 29. GENERAL: No acute distress. HEENT: Sclerae nonicteric. EOMI. Oral mucous membranes moist. NECK: No JVD. CHEST: Equal excursion, nonlabored breathing. CVS: Regular rate and rhythm. ABDOMEN: Soft. Mild tenderness right upper quadrant. No peritoneal signs. EXTREMITIES: No significant edema. NEURO: Alert, oriented, moving extremities symmetrically. RECTAL: Deferred timed to endoscopy exam. PSYCH: Appropriate mood and affect. SKIN: Dry. IMPRESSION: Acute exacerbation chronic cholecystitis, symptomatic cholelithiasis. I feel the patient would benefit from cholecystectomy. She was shown the gallbladder pamphlet and risk sheet explained the procedure in detail including bleeding or infection, risk of trocar injury or hernia, risk of bile leak, bile duct injury, retained stone or sludge possibly requiring further procedure either open or ERCP, general risk of anesthesia, deep venous thrombosis, pulmonary embolism, pneumonia, perioperative risk of aches, pains, bloating, constipation and/or loose stools possibly even chronic in nature. Possible chronic in nature, possibly no improvement in her symptoms possibly requiring endoscopy, other studies or procedures or referrals, possibly need open procedure. General risk of anesthesia, deep venous thrombosis, pulmonary embolism, pneumonia but not limited to. She understands and agrees to the planned procedure. Will proceed with laparoscopic cholecystectomy possible open as an outpatient.
[2023-10-31] MEDS ORDERED: MEFOXIN 2 GM PREMIX** 2 GM/50 ML ML IV ONE (08:25)
[2023-10-31] MEDS ORDERED: Lactated Ringers 1,000 ML IV ONE (08:25)
[2023-10-31 08:30] LABS: HCG URINE TEST NEGATIVE (NEGATIVE)
[2023-10-31] MEDS: MEFOXIN 2 GM PREMIX** 2 GM/50 ML ML IV SCH (08:31)
[2023-10-31] MEDS: Lactated Ringers 1,000 ML IV SCH (08:32)
[2023-10-31 08:47] VITALS: O2SAT 98
[2023-10-31] MEDS ORDERED: DIPRIVAN 200 MG/20 ML IV ONE (10:43)
[2023-10-31] MEDS ORDERED: Decadron 4 MG INJ ONE (10:43)
[2023-10-31] MEDS ORDERED: Zofran 4 MG/2 ML VIAL ONE ×2 (10:43→12:15)
[2023-10-31] MEDS ORDERED: ROCURONIUM BROMIDE IV ONE (10:43)
[2023-10-31] MEDS ORDERED: SUBLIMAZE 100 MCG/2 ML ONE ×2 (11:13→13:02)
[2023-10-31] MEDS ORDERED: BRIDION 200MG/2ML IV ONE (11:39)
[2023-10-31] MEDS ORDERED: TORAdol 30 mg Injection ONE (11:39)
[2023-10-31] MEDS ORDERED: NORCO 5/325 MG ONE (13:32)
[2023-10-31] MEDS: NORCO 5/325 MG PO PRN (13:32)
[2023-10-31 13:48] VITALS: BP 122/63; PULSE 89; RESP 16
[2023-10-31 14:07] VITALS: TEMP 97.8
--- NOTE | 2023-10-31 14:19 | OP ---
SURGERY DATE/TIME: 10/31/2023 1050 PREOPERATIVE DIAGNOSIS: Acute exacerbation of chronic cholecystitis, symptomatic cholelithiasis. Prior bariatric surgery. POSTOPERATIVE DIAGNOSIS: Acute exacerbation of chronic cholecystitis, symptomatic cholelithiasis. Prior bariatric surgery. PROCEDURE: Laparoscopic cholecystectomy. SURGEON: Dr. Joe Marroquin. ANESTHESIA: General. QUANTITATIVE BLOOD LOSS: Minimal. INDICATIONS: As noted above. Risks and benefits explained in detail but not limited to and consent obtained. DESCRIPTION OF PROCEDURE AND FINDINGS: The patient was taken to the operating room. General anesthesia induced. Abdomen prepped and draped in usual sterile fashion. After official time out and no disagreement with planned procedure, a transverse incision made in supraumbilical area. Fascia grasped, pulled upward. Veress needle inserted and tested with saline. Pneumoperitoneum accomplished insufflating opening pressure of 0-15. A 5 mm bladeless port and camera were inserted without difficulty followed by two - 5 mm right upper quadrant ports and 11 mm epigastric port. The gallbladder had extensive omental adhesion against this. She had prior bariatric surgery. Dissected posterior, lateral to anterior fashion. Small delay in getting cautery hooked up. Eventually dissection carried posterior, lateral to anterior fashion. Cystic duct and infundibular junction slowly and carefully well skeletonized until the critical view obtained anteriorly and posteriorly. Once this is accomplished, the cystic duct and cystic artery were clipped x3 and divided in the usual fashion. The gallbladder is slowly and carefully dissected free from its dense attachments to the liver bed clipping additional oozing side branch off the cystic artery, cystic vein directly on the gallbladder wall as necessary. Just prior to releasing from final attachments to the anterior edge of the liver, the liver bed re-inspected. Clips noted in place in the cystic duct and cystic artery stumps. No signs of any active bleeding or bile leakage. It was felt there is no benefit of drain placement. The gallbladder was released from final attachments to the anterior edge of the liver and placed in the provided bag pulled up in epigastric wound and part of this pulled out at the skin with the gallbladder open decompressing bile and multiple medium sized stones retrieved with Marv finally allowing the gallbladder and bag to be pulled free and passed off. The fascial defect was closed with puncture closure device with #1 Vicryl. Copious amount of irrigation accomplished lateral to the liver and subhepatic space irrigating clear. Liver bed re-inspected. Clips noted to be in place cystic duct and cystic artery stumps. No signs of any active bleeding or bile leakage. It was felt there was no benefit in drain placement. Pneumoperitoneum decompressed. The wound irrigated out. Skin incision closed with 4-0 Vicryl. 0.25% Marcaine local injected along the skin incision fascial defect. The patient tolerated the procedure well. There were no immediate complications. The family was not out in the waiting room but eventually I did talk to them later in the waiting room.
== END 2023-10-31 14:08 | disposition home or self-care (01) ==
LOC: SDC 08:05
PROVIDERS: ATTEND Surgery
DX: K81.2 Acute cholecystitis with chronic cholecystitis (principal); Z98.84 Bariatric surgery status
CPT/HCPCS: 81025; J0694; J1100; J1885; J2405; J2704; J3010; L0625; A9270-GY

== ENCOUNTER 2024-06-25 10:25 | Observation (INO) | payer BC, OTHER ==
[2024-06-25 11:11] LABS: AMNISURE TEST RESULTS NEGATIVE (NEGATIVE)
[2024-06-25 11:23] VITALS: TEMP 98.5
[2024-06-25 12:27] LABS: Appearance Clear (Clear); Bacteria None Seen /HPF (None Seen); Bilirubin Negative (Negative); Blood Negative (Negative); Epithelial Cells None Seen /HPF (None Seen); Glucose, Urine Negative (Negative); Hyaline Casts NONE SEEN /LPF (0-2); Ketones Negative (Negative); Leukocyte Esterase Negative (Negative); Nitrite Negative (Negative); Protein,Urine Dip Negative (Negative); RBC 0-2 /HPF (0-5); WBC 0-2 /HPF (0-5)
[2024-06-25] MEDS: Lactated Ringers 1,000 ML IV ONE (13:15)
--- NOTE | 2024-06-25 13:48 | XRAY ---
Indication: Spontaneous rupture of membrane. Evaluate growth, DEONDRE, and cervical length. 2-dimensional OB ultrasound performed. Comparison: None Single intrauterine in cephalic presentation. heart rate 174 BPM. Posterior fundal placenta without abnormal retroplacental fluid. Cervix is closed with cervical length 3.1 cm. BPD measures 6.97 cm corresponding to 28 weeks 0 days. HC measures 26.45 cm corresponding to 28 weeks 6 days. AC measures 22.75 cm corresponding to 27 weeks 1 day. FL measures 5.31 cm corresponding to 28 weeks 2 days. Estimated weight 2 lbs. 8 oz., +/-6 ounces. Approximately 56 percentile. DEONDRE is 11.5 cm. Impression: Single viable intrauterine with mean gestational age 28 weeks 1 day. Expected confinement is September 16, 2024. Nothing acute.
[2024-06-25] MEDS: BRETHINE 1 MG/ML SQ ONE (13:59)
[2024-06-25 14:08] LABS: Amphetamine,Urine NEGATIVE (NEGATIVE); Barbiturate,Urine NEGATIVE (NEGATIVE); Benzodiazepine,Urine NEGATIVE (NEGATIVE); Cocaine,Urine NEGATIVE (NEGATIVE); Methadone,Urine NEGATIVE (NEGATIVE); Opiate,Urine NEGATIVE (NEGATIVE); PCP,Urine NEGATIVE (NEGATIVE); THC,Urine NEGATIVE (NEGATIVE)
[2024-06-25 14:23] VITALS: BP 121/57; PULSE 100; RESP 20
== END 2024-06-25 16:08 | disposition home or self-care (01) ==
LOC: OB 10:25
PROVIDERS: ADMIT Obstetrics & Gynecology; ATTEND Obstetrics & Gynecology
DX: Z34.02 Encounter for supervision of normal first pregnancy, second trimester (principal); Z3A.27 27 weeks gestation of pregnancy
CPT/HCPCS: 76805; 80307; 81001; 84112; 90384; G0378; G0379

== ENCOUNTER 2024-08-27 11:23 | Observation (INO) | payer BC, OTHER ==
[2024-08-27 12:12] LABS: AMNISURE TEST RESULTS NEGATIVE (NEGATIVE)
[2024-08-27 13:08] LABS: Appearance Clear (Clear); Bacteria Rare /HPF (None Seen); Bilirubin Negative (Negative); Blood Trace (Negative); Epithelial Cells Few /HPF (None Seen); Glucose, Urine Negative (Negative); Hyaline Casts NONE SEEN /LPF (0-2); Ketones Negative (Negative); Leukocyte Esterase Small (Negative); Nitrite Negative (Negative); Protein,Urine Dip Negative (Negative); Specific Gravity 1.025 (1.005-1.030)
[2024-08-27 13:34] LABS: Amphetamine,Urine NEGATIVE (NEGATIVE); Barbiturate,Urine NEGATIVE (NEGATIVE); Benzodiazepine,Urine NEGATIVE (NEGATIVE); Cocaine,Urine NEGATIVE (NEGATIVE); Methadone,Urine NEGATIVE (NEGATIVE); Opiate,Urine NEGATIVE (NEGATIVE); PCP,Urine NEGATIVE (NEGATIVE); THC,Urine NEGATIVE (NEGATIVE)
[2024-08-27] MEDS: PROCARDIA 10 MG PO ONE (14:10)
[2024-08-27] MEDS: Lactated Ringers 1,000 ML IV ONE (14:10)
[2024-08-27] MEDS: Lactated Ringers 1,000 ML IV SCH (15:27)
[2024-08-27] MEDS: PROCARDIA 10 MG PO SCH (21:58)
[2024-08-27 23:18] VITALS: RESP 16
[2024-08-28 05:10] VITALS: O2SAT 97
[2024-08-28 08:25] VITALS: BP 134/65; PULSE 86; TEMP 98.6
== END 2024-08-28 08:15 | disposition home or self-care (01) ==
LOC: OB 11:23
PROVIDERS: ADMIT Obstetrics & Gynecology; ATTEND Obstetrics & Gynecology
DX: Z34.03 Encounter for supervision of normal first pregnancy, third trimester (principal); Z3A.36 36 weeks gestation of pregnancy
CPT/HCPCS: 80307; 81001; 82947; 84112; 87086; G0378; G0379; A9270-GY

== ENCOUNTER 2024-09-03 21:49 | Observation (INO) | payer BC, OTHER ==
[2024-09-03 23:56] LABS: Appearance Clear (Clear); Bacteria None Seen /HPF (None Seen); Bilirubin Negative (Negative); Blood Negative (Negative); Epithelial Cells None Seen /HPF (None Seen); Glucose, Urine Negative (Negative); Hyaline Casts NONE SEEN /LPF (0-2); Ketones Negative (Negative); Leukocyte Esterase Negative (Negative); Nitrite Negative (Negative); Ph 6.5 (4.6-8.0); Protein,Urine Dip Negative (Negative); RBC 0-2 /HPF (0-5); Specific Gravity 1.015 (1.005-1.030); WBC 0-2 /HPF (0-5)
[2024-09-04 00:20] LABS: Amphetamine,Urine NEGATIVE (NEGATIVE); Barbiturate,Urine NEGATIVE (NEGATIVE); Benzodiazepine,Urine NEGATIVE (NEGATIVE); Cocaine,Urine NEGATIVE (NEGATIVE); Methadone,Urine NEGATIVE (NEGATIVE); Opiate,Urine NEGATIVE (NEGATIVE); PCP,Urine NEGATIVE (NEGATIVE); THC,Urine NEGATIVE (NEGATIVE)
[2024-09-04 01:48] VITALS: TEMP 98.2
[2024-09-04 08:04] VITALS: BP 123/77; PULSE 73; RESP 15; O2SAT 98
== END 2024-09-04 09:30 | disposition home or self-care (01) ==
LOC: OB 21:49
PROVIDERS: ADMIT Family Medicine; ATTEND Obstetrics & Gynecology
DX: Z34.03 Encounter for supervision of normal first pregnancy, third trimester (principal); Z3A.37 37 weeks gestation of pregnancy
CPT/HCPCS: 80307; 81001; G0378; G0379

== ENCOUNTER 2024-09-13 16:50 | Inpatient (IN) | payer BC, OTHER ==
[2024-09-13] MEDS: Lactated Ringers 1,000 ML IV ONE ×2 (17:31→20:41)
[2024-09-13] MEDS ORDERED: OMNIPEN 2 GM ONE (18:49)
[2024-09-13] MEDS ORDERED: Sodium Chloride 100ML MINI-BAG PLUS 100 ML IV ONE ×2 (18:50→22:48)
[2024-09-13] MEDS: STADOL 2 MG IV PRN (18:52)
[2024-09-13] MEDS: OMNIPEN 2 GM*** 2 G in Sodium Chloride 100ML MINI-BAG PLUS 100 ML IV ONE (18:52)
[2024-09-13] MEDS: Lactated Ringers 1,000 ML IV SCH (18:53)
[2024-09-13] MEDS ORDERED: Ephedrine Sulfate 50 MG/ML IV PRN (18:54)
[2024-09-13 18:55] LABS: Absolute Neutrophil Ct (ANC) 8.61 x10^3/uL (1.56-6.13); BASOPHIL % 0.5 % (0.1-1.2); Basophil (Absolute #) 0.05 x10^3/uL (0.01-0.08); Eosinophil % 0.3 % (0.7-5.8); Eosinophil (Absolute #) 0.03 x10^3/uL (0.04-0.36); Hematocrit 35.9 % (34.1-44.9); Hemoglobin 11.1 g/dL (11.2-15.7); IMMATURE GRAN # 0.05 x10^3u/L (0.001-0.031); IMMATURE GRAN % 0.5 % (0.001-0.429); Lymphocytes % 13.5 % (19.3-51.7); Mean Cell Volume 82.9 fL (79.4-94.8); Mean Corpuscular Hemoglobin 25.6 pg (25.6-32.2); Mean Corpuscular Hgb Concent. 30.9 g/dL (32.2-35.5); Mean Platelet Volume 10.8 fL (9.4-12.3); Monocyte (Absolute #) 0.85 x10^3/uL (0.24-0.86); Monocytes % 7.7 % (4.7-12.5); Neutrophil % 77.5 % (34.0-71.1); Platelet Count 212 x10^3/uL (182-369); Red Blood Count 4.33 x10^6/uL (3.93-5.22); Red Cell Distribution Width 15.3 % (11.7-14.4); White Blood Count 11.1 x10^3/uL (3.98-10.04)
[2024-09-13 19:19] LABS: Amphetamine,Urine NEGATIVE (NEGATIVE); Barbiturate,Urine NEGATIVE (NEGATIVE); Benzodiazepine,Urine NEGATIVE (NEGATIVE); Cocaine,Urine NEGATIVE (NEGATIVE); Methadone,Urine NEGATIVE (NEGATIVE); Opiate,Urine NEGATIVE (NEGATIVE); PCP,Urine NEGATIVE (NEGATIVE); THC,Urine NEGATIVE (NEGATIVE)
[2024-09-13 19:45] LABS: ABO TYPING O; Antibody Screen NEGATIVE (NEGATIVE); RH TYPING POSITIVE
[2024-09-13] MEDS ORDERED: Lactated Ringers 1,000 ML IV ONE (20:38)
[2024-09-13] MEDS: Zofran 4 MG/2 ML VIAL IV PRN (20:56)
[2024-09-13] MEDS: FENTANYL 2 MCG-BUPIV 0.125%-NS 250 ML Epidur 250 ML EPIDURAL SCH (21:00)
[2024-09-13] MEDS ORDERED: OMNIPEN 1 GM ONE (22:48)
[2024-09-13] MEDS: OMNIPEN 1 GM*** 1 GM in Sodium Chloride 100ML MINI-BAG PLUS 100 ML IV SCH (22:49)
[2024-09-13] MEDS ORDERED: Ambien 10 MG PO PRN (22:55)
[2024-09-14] MEDS ORDERED: OMNIPEN 1 GM ONE ×2 (02:28→06:45)
[2024-09-14] MEDS ORDERED: Sodium Chloride 100ML MINI-BAG PLUS 100 ML IV ONE ×2 (02:29→06:47)
[2024-09-14] MEDS ORDERED: BRETHINE 1 MG/ML SQ PRN (06:41)
[2024-09-14] MEDS: PITOCIN 30 UNITS/ LR 500 ML 30 UNITS/500 ML PLAST..BAG IV SCH ×2 (06:48→19:53)
[2024-09-14] MEDS ORDERED: LANSINOH 40 GM TOP PRN (14:52)
[2024-09-14] MEDS ORDERED: Mylicon 80MG PO PRN (14:52)
[2024-09-14] MEDS ORDERED: CORTISONE 1% CREAM TP PRN (14:52)
[2024-09-14] MEDS ORDERED: Anucort-HC SUPPOSITORY PR PRN (14:52)
[2024-09-14] MEDS ORDERED: Dulcolax 10 MG SUPP PR PRN (14:52)
[2024-09-14] MEDS ORDERED: MOTRIN 400 MG PO PRN (14:52)
[2024-09-14] MEDS: TYLENOL EXTRA STRENGTH 500 MG PO PRN (14:59)
[2024-09-14] MEDS: TUCKS TP PRN (16:14)
[2024-09-14] MEDS: BUSPAR 5 MG PO SCH (17:46)
[2024-09-14] MEDS: Effexor XR 75 MG PO SCH (17:47)
[2024-09-14] MEDS: Docusate Sodium 100 MG PO SCH (21:46)
[2024-09-14] MEDS: Adacel Vial IM ONE (21:47)
[2024-09-15 05:30] LABS: BASOPHIL % 0.2 % (0.1-1.2); Basophil (Absolute #) 0.03 x10^3/uL (0.01-0.08); Eosinophil % 0.5 % (0.7-5.8); Eosinophil (Absolute #) 0.06 x10^3/uL (0.04-0.36); Hematocrit 32.1 % (34.1-44.9); IMMATURE GRAN # 0.05 x10^3u/L (0.001-0.031); IMMATURE GRAN % 0.4 % (0.001-0.429); Lymphocyte (Absolute #) 1.33 x10^3/uL (1.18-3.74); Lymphocytes % 10.9 % (19.3-51.7); Mean Cell Volume 83.4 fL (79.4-94.8); Mean Corpuscular Hgb Concent. 31.2 g/dL (32.2-35.5); Mean Platelet Volume 11.3 fL (9.4-12.3); Monocyte (Absolute #) 1.23 x10^3/uL (0.24-0.86); Monocytes % 10.1 % (4.7-12.5); Neutrophil % 77.9 % (34.0-71.1); Platelet Count 205 x10^3/uL (182-369); Red Blood Count 3.85 x10^6/uL (3.93-5.22); Red Cell Distribution Width 15.7 % (11.7-14.4); White Blood Count 12.2 x10^3/uL (3.98-10.04)
[2024-09-15] MEDS: FERREX 150 PO SCH (09:05)
--- NOTE | 2024-09-15 11:03 | PCM.NOTE ---
Date and Time: 09/15/24 1102 Subjective Assessment: ppd 1 sp pt resting in bed and doing well without complaints. ambulating and tolerating diet vss afebrile abd; soft uterus; firm lochia; mild hgb; 10 a/p sp ppd 1 anticipate discharge tomorrow plan on iron transfusion tomorrow should fu in office in 3 wks Objective Data Vital Signs: Vital Signs - 24 hr Temp Pulse Resp BP BP BP Pulse Ox 09/15/24 08:00 97.5 F 91 H 16 133/76 99 09/15/24 02:00 98.5 F 81 20 128/57 96 09/14/24 20:00 98 F 93 H 18 135/76 97 09/14/24 17:00 98.7 F 91 H 16 133/65 100 09/14/24 15:15 98.6 F 85 16 133/74 100 09/14/24 14:15 98.6 F 81 16 134/68 99 09/14/24 13:30 72 16 121/66 99 09/14/24 13:15 70 16 134/69 100 09/14/24 13:00 98.6 F 72 16 121/66 100 09/14/24 12:45 98.6 F 107 H 16 148/82 94 L 09/14/24 12:27 98.5 F 81 20 134/62 97 09/14/24 12:15 109 H 20 140/63 99 09/14/24 12:00 98.5 F 81 20 96 09/14/24 11:45 71 20 148/106 96 09/14/24 11:30 98.5 F 70 20 130/58 99 09/14/24 11:15 98.5 F 79 20 137/65 96 Pain Assessment - Last Documented Pain Intensity [Anterior] 2 Pain Intensity 2 Pain Scale Used 0-10 Pain Scale Intake and Output: Intake & Output 09/12/24 09/13/24 09/14/24 09/15/24 11:59 11:59 11:59 11:59 Intake Total 2400 720 Output Total 6030 Balance -3630 720 Weight 87.997 kg Lab Results: Lab Results-Last 24 Hours 09/15/24 09/15/24 Range/Units 05:11 06:51 WBC 12.2 H (3.98-10.04) x10^3/uL RBC 3.85 L (3.93-5.22) x10^6/uL Hgb 10.0 L (11.2-15.7) g/dL Hct 32.1 L (34.1-44.9) % MCV 83.4 (79.4-94.8) fL MCH 26.0 (25.6-32.2) pg MCHC 31.2 L (32.2-35.5) g/dL RDW 15.7 H (11.7-14.4) % Plt Count 205 (182-369) x10^3/uL MPV 11.3 (9.4-12.3) fL Gran % 77.9 H (34.0-71.1) % Immature Gran % (Auto) 0.4 (0.001-0.429) % Nucleat RBC Rel Count 0.0 (0.00-0.2) % Eos # (Auto) 0.06 (0.04-0.36) x10^3/uL Immature Gran # (Auto) 0.05 H (0.001-0.031) x10^3u/L Absolute Lymphs (auto) 1.33 (1.18-3.74) x10^3/uL Absolute Monos (auto) 1.23 H (0.24-0.86) x10^3/uL Absolute Nucleated RBC 0.00 (0.00-0.012) x10^3u/L Lymphocytes % 10.9 L (19.3-51.7) % Monocytes % 10.1 (4.7-12.5) % Eosinophils % 0.5 L (0.7-5.8) % Basophils % 0.2 (0.1-1.2) % Absolute Granulocytes 9.50 H (1.56-6.13) x10^3/uL Basophils # 0.03 (0.01-0.08) x10^3/uL POC Glucometer TNP Assessment/Plan (1) Vaginal delivery Current Visit: Yes Status: Acute Code(s): O80 - ENCOUNTER FOR FULL-TERM UNCOMPLICATED DELIVERY
--- NOTE | 2024-09-15 11:07 | PCM.DS ---
Discharge Summary Date of Admission: 09/13/24 20:23 Admitting Physician: CEFERINO KIMBLE DO Consults: Consults on Case 09/14/24 17:22 Navigation ONCE Primary Care Provider: LENORA BRUMFIELD Allergies Allergies benzonatate Allergy (Severe, Verified 09/14/24 20:00) Swelling of Face throat swelling latex Allergy (Intermediate, Verified 09/14/24 20:00) Rash shellfish derived Allergy (Intermediate, Verified 09/14/24 20:00) Swelling of Tongue and Lips Hospital Summary - Hospital Course Hospital Course: pt was admitted at 38 1/7 wks gesstation in labor f ound to be 6 cm dilated recieved her epidural on september 13 and subsequently delivered live baby boy via without complication on september 14. pt was noted having a small left labial tear repaired with 2-0 chromic suture. during period did very well with stable vitals and hgb at 10. pt with hx of gastric bypass and was advised to receive iron transfusion from her provider prior to discharge and was done so. at this tiime pt stable for discharge on september 16 with advise to fu in office in 3 wks. all questions answered to her satisfaction. - Vitals & Intake/Output Vital Signs: Vital Signs Temperature 97.5 F 09/15/24 08:00 Pulse Rate 91 H 09/15/24 08:00 Respiratory Rate 16 09/15/24 08:00 Blood Pressure 133/76 09/15/24 08:00 O2 Sat by Pulse Oximetry 99 09/15/24 08:00 Intake & Output: Intake & Output 09/12/24 09/13/24 09/14/24 09/15/24 11:59 11:59 11:59 11:59 Intake Total 2400 720 Output Total 6030 Balance -3630 720 Weight 87.997 kg - Lab Result Diagrams: 09/15/24 05:11 Lab Results-Last 24 Hrs: Lab Results-Last 24 Hours 09/15/24 09/15/24 Range/Units 05:11 06:51 WBC 12.2 H (3.98-10.04) x10^3/uL RBC 3.85 L (3.93-5.22) x10^6/uL Hgb 10.0 L (11.2-15.7) g/dL Hct 32.1 L (34.1-44.9) % MCV 83.4 (79.4-94.8) fL MCH 26.0 (25.6-32.2) pg MCHC 31.2 L (32.2-35.5) g/dL RDW 15.7 H (11.7-14.4) % Plt Count 205 (182-369) x10^3/uL MPV 11.3 (9.4-12.3) fL Gran % 77.9 H (34.0-71.1) % Immature Gran % (Auto) 0.4 (0.001-0.429) % Nucleat RBC Rel Count 0.0 (0.00-0.2) % Eos # (Auto) 0.06 (0.04-0.36) x10^3/uL Immature Gran # (Auto) 0.05 H (0.001-0.031) x10^3u/L Absolute Lymphs (auto) 1.33 (1.18-3.74) x10^3/uL Absolute Monos (auto) 1.23 H (0.24-0.86) x10^3/uL Absolute Nucleated RBC 0.00 (0.00-0.012) x10^3u/L Lymphocytes % 10.9 L (19.3-51.7) % Monocytes % 10.1 (4.7-12.5) % Eosinophils % 0.5 L (0.7-5.8) % Basophils % 0.2 (0.1-1.2) % Absolute Granulocytes 9.50 H (1.56-6.13) x10^3/uL Basophils # 0.03 (0.01-0.08) x10^3/uL POC Glucometer TNP Final Diagnosis/Problem List - Final Discharge Diagnosis/Problem (1) Vaginal delivery Current Visit: Yes Status: Acute Code(s): O80 - ENCOUNTER FOR FULL-TERM UNCOMPLICATED DELIVERY - Discharge Disposition: Home, Self-Care Condition: Stable Prescriptions: No Action Venlafaxine HCl ER 75 mg [Effexor XR 75 MG] 75 mg PO DAILY Buspirone HCl 5 mg [Buspar 5 mg] 1 tab PO DAILY Follow up with: LENORA BRUMFIELD NP [Primary Care Provider] - CEFERINO KIMBLE DO [ACTIVE STAFF] - 3 weeks
[2024-09-15 16:37] LABS: RPR Non Reactive (Non Reactive)
[2024-09-15] MEDS: ACYCLOVIR PO SCH (19:12)
[2024-09-16] MEDS ORDERED: BUSPAR 5 MG ONE (02:19)
[2024-09-16] MEDS: FERAHEME IV ONE (09:43)
[2024-09-16] MEDS: SODIUM CHLORIDE 0.9% IV ONE (09:43)
[2024-09-16 11:40] VITALS: RESP 16; TEMP 98.6
[2024-09-16 11:41] VITALS: BP 135/76; PULSE 99; O2SAT 98
== END 2024-09-16 15:16 | disposition home or self-care (01) | DRG 807 ==
LOC: OB 16:50 → OBSVTOIN 20:23 → OB 09-14 04:48
PROVIDERS: ADMIT Obstetrics & Gynecology; ATTEND Obstetrics & Gynecology
PROC: 10E0XZZ Delivery of Products of Conception, External Approach (ICD-10-PCS; principal; 2024-09-14)
PROC: 0HQ9XZZ Repair Perineum Skin, External Approach (ICD-10-PCS; 2024-09-14)
DX: O70.0 First degree perineal laceration during delivery (principal); Z37.0 Single live birth; Z3A.38 38 weeks gestation of pregnancy; Z98.84 Bariatric surgery status
CPT/HCPCS: 36415; 59400; 80307; 85025; 86592; 86850; 86900; 86901; 87086; 90471; 90715; J0290; J0595; J2405; J2590; A9270-GY; Q0138